=== PATIENT | female | born 1995 | race Caucasian/White ===

== ENCOUNTER → 2017-06-19 | Outpatient (CLI) | payer BC, OTHER ==
--- NOTE | 2017-06-19 12:13 | REP ---
Acute abdominal series series including PA chest and supine upright abdomen: There are no comparisons. PA chest: The lung mccullough are clear. The cardiac size is normal The fr[place], mediastinum, and bony thorax are unremarkable. There is no free subdiaphragmatic Impression: Negative PA chest. Abdomen, supine upright views: The bowel gas pattern is normal. There are tiny calcifications in the pelvis, likely ingested material in bowel loops. 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 Impression: Normal bowel gas pattern. Signed by Jack Manning MD 06/19/2017 12:05 P
[2017-06-19 14:16] LABS: BASO % 0.3 % (0.0-1.0); EOS % 0.1 % (0.0-3.0); LARGE UNSTAINED CELL # 0.2 K/mm3 (0.0-0.4); LARGE UNSTAINED CELL % 2.4 % (0.0-4.0); LYMPH # 3.2 K/mm3 (1.5-6.5); LYMPH % 30.4 % (24.0-44.0); MEAN CORPUSCULAR HEMOGLOBIN 31.3 pg (27.0-33.0); MEAN CORPUSCULAR HGB CONC 34.7 g/dl (32.0-36.5); MEAN CORPUSCULAR VOLUME 90.1 fl (80.0-96.0); MONO # 0.5 K/mm3 (0.0-0.8); NEUTROPHILS % 61.9 % (36.0-66.0); PLATELET COUNT, AUTOMATED 283 k/mm3 (150-450); WHITE BLOOD COUNT 9.6 K/mm3 (4.0-10.0)
[2017-06-19 14:39] LABS: ALBUMIN 4.2 GM/DL (3.2-5.2); ALBUMIN/GLOBULIN RATIO 1.45 (1.00-1.93); ALKALINE PHOSPHATASE 93 U/L (45-117); ALT/SGPT 18 U/L (12-78); AMYLASE 46 U/L (25-115); ANION GAP 7 MEQ/L (8-16); AST/SGOT 11 U/L (15-37); BILIRUBIN,TOTAL 0.6 MG/DL (0.2-1.0); BLOOD UREA NITROGEN 12 MG/DL (7-18); CALCIUM LEVEL 9.6 MG/DL (8.5-10.1); CARBON DIOXIDE LEVEL 29 MEQ/L (21-32); CHLORIDE LEVEL 104 MEQ/L (98-107); CREATININE FOR GFR 0.73 MG/DL (0.55-1.02); GLOMERULAR FILTRATION RATE > 60.0 (>60); GLUCOSE, FASTING 72 MG/DL (70-105); POTASSIUM SERUM 4.7 MEQ/L (3.5-5.1); SODIUM LEVEL 140 MEQ/L (136-145); TOTAL PROTEIN 7.1 GM/DL (6.4-8.2)
== END ==
LOC: M WUC 11:30
PROVIDERS: ATTEND Physician Assistant
DX: R10.816 Epigastric abdominal tenderness (principal)

== ENCOUNTER → 2017-07-09 | Outpatient (CLI) | payer BC, OTHER ==
[~2017-07-09] MED LIST: E-Z-GAS II EFFERVESCENT PACKET (SODIUM BICARB./CITRIC ACID/SIMETHICONE) As Ordered ONE; E-Z-HD 98% w/w 340GM SUSP BTL As Ordered ONE; E-Z-PAQUE 96% w/w SUSP 176GM BTL As Ordered ONE
--- NOTE | 2017-07-09 19:26 | REP ---
UPPER GI SMALL BOWEL FOLLOW THROUGH: The procedure was performed by ALINA Gilliland under the direct supervision of Dr. Landon. All imaging was reviewed with Dr. Landon prior to dictation. The patient was able to ingest liquid barium and air in a quantity sufficient to produce a double contrast examination. The oral and pharyngeal stages of deglutition appeared unremarkable. Esophageal transport was prompt and efficient. There was no evidence of esophagitis, stricture, mucosa ring or hiatal hernia. Minimal gastroesophageal reflux was observed on this examination. The stomach murillo are normally outlined. The rugal folds were smooth and regular. There was no evidence of gastritis, neoplasm, or ulcerative disease. The duodenal murillo were normally outlined. There was no evidence of duodenitis, peptic ulcer disease, or neoplasm. The visualized portion of the proximal small bowel was normal in course and caliber. Additional liquid barium was given at the end of the examination in order to perform a small bowel follow through. During fluoroscopy gentle palpation of the small bowel loops showed them to be freely movable and pliable without evidence of a fixed or angulated loop. The small bowel mucosal pattern was normal in course and caliber. There was no transition to suggest a partial small bowel obstruction. Spot filming of the terminal ileum showed it to be within normal limits. IMPRESSION: Unremarkable double contrast upper GI examination and small bowel follow through. Fluoroscopy time was 4 minutes and 37 seconds. Reviewed by ALINA Aguilar 07/12/2017 12:05 PEdited and Signed by John Landon MD 07/12/2017 02:12 P
== END ==
LOC: M RAD 09:12
PROVIDERS: ATTEND Surgery
DX: R10.9 Unspecified abdominal pain (principal)